=== PATIENT | male | born 1950 | race Caucasian/White ===

== ENCOUNTER 2018-03-29 07:46 | Day surgery (SDC) | payer MEDICARE ==
[~2018-03-29] VITALS: Ht 170.2 cm; Wt 77.5 kg
[~2018-03-29 07:46] MED LIST: BACITRACIN 50,000 UNIT ONE; BACITRACIN OINT 500U/GM, 15 GM ONE; EPINEPHRINE TOPICAL SOLN 1 MG/ML, 30ML ONE; FLUORESCEIN SODIUM 500 MG/5 ML ONE; LIDOCAINE 1%-EPI 1:100K, 30ML ONE; OXYMETAZOLINE NASAL SPRAY 0.05%, 15ML ONE
[2018-03-29] MEDS ORDERED: LACTATED RINGERS 1,000 ML IV SCH (08:31)
[2018-03-29] MEDS ORDERED: METFORMIN PO (08:42)
[2018-03-29] MEDS ORDERED: LISINOPRIL PO (08:42)
[2018-03-29] MEDS ORDERED: MELOXICAM PO (08:42)
[2018-03-29] MEDS ORDERED: HYDROCHLOROTHIAZIDE PO (08:42)
[2018-03-29] MEDS ORDERED: STATIN PO (08:42)
[2018-03-29] MEDS ORDERED: ALLOPURINOL PO (08:42)
[2018-03-29] MEDS ORDERED: LEXAPRO PO (08:42)
[2018-03-29] MEDS ORDERED: PRILOSEC PO (08:42)
[2018-03-29 08:50] VITALS: BP 131/84
[2018-03-29] MEDS ORDERED: ACETAMINOPHEN 500 MG TABLET PO ONE (09:00)
[2018-03-29] MEDS ORDERED: GABAPENTIN 300 MG CAPSULE PO ONE (09:00)
[2018-03-29] MEDS ORDERED: SCOPOLAMINE PATCH, 1.5MG PATCH.TD72 TD ONE (09:00)
[2018-03-29] MEDS ORDERED: LIDOCAINE-MPF 1%, 2ML INFIL ONE (09:00)
[2018-03-29] MEDS ORDERED: FENTANYL PF 250 MCG/5ML ONE (09:02)
[2018-03-29] MEDS ORDERED: MIDAZOLAM 1 MG/ML, 2ML ONE (09:02)
[2018-03-29 09:28] LABS: ALBUMIN 3.6 g/dL (3.4-5.0); ANION GAP 6 mmol/L (5-15); CALCIUM 8.3 mg/dL (8.5-10.1); CHLORIDE 110 mmol/L (98-107)
[2018-03-29 09:31] LABS: ALANINE AMINOTRANSFERASE 61 U/L (12-78); ALKALINE PHOSPHATASE 114 U/L (45-117); BILIRUBIN,TOTAL 0.5 mg/dL (0.2-1.0); CREATININE 1.02 mg/dL (0.7-1.3); TOTAL PROTEIN 6.3 g/dL (6.4-8.2)
[2018-03-29] MEDS ORDERED: ROCURONIUM 10 MG/ML,10ML ONE (09:42)
[2018-03-29] MEDS ORDERED: SUCCINYLCHOLINE 20 MG/ML, 10ML ONE (09:42)
[2018-03-29] MEDS ORDERED: PROPOFOL 10 MG/ML, 20ML ONE (09:42)
[2018-03-29] MEDS ORDERED: ONDANSETRON 2MG/ML, 2ML ONE (09:42)
[2018-03-29] MEDS ORDERED: CEFAZOLIN 1,000 MG ONE (09:42)
[2018-03-29] MEDS ORDERED: METOCLOPRAMIDE 5 MG/ML, 2ML IV PRN (10:30)
[2018-03-29] MEDS ORDERED: HYDROmorphone 1 MG/ML, 1ML IV PRN (10:30)
[2018-03-29] MEDS ORDERED: ONDANSETRON 2MG/ML, 2ML IVPush PRN (10:30)
[2018-03-29] MEDS ORDERED: FENTANYL PF 100 MCG/2ML IV PRN (10:30)
[2018-03-29] MEDS ORDERED: hydrALAzine 20 MG/ML, 1ML IV PRN (10:30)
[2018-03-29] MEDS ORDERED: ALBUTEROL SULFATE 2.5 MG/3 ML NPPB PRN (10:30)
[2018-03-29] MEDS ORDERED: OXYcodone 5 MG/5 ML ORAL.SOL UDC PO PRN (10:30)
[2018-03-29] MEDS ORDERED: MEPERIDINE/PF 25MG/0.5ML IVPush PRN (10:30)
[2018-03-29] MEDS ORDERED: LABETALOL 5MG/ML, 20ML IV PRN (10:30)
[2018-03-29] MEDS ORDERED: PROMETHAZINE 25 MG/ML, 1ML IV PRN (10:30)
[2018-03-29] MEDS ORDERED: KETOROLAC 30 MG/1 ML IV PRN (10:30)
== END 2018-03-29 14:40 | disposition home or self-care (01) ==
LOC: OUT 07:46
PROVIDERS: ATTEND Otolaryngology
DX: J32.0 Chronic maxillary sinusitis (principal); J01.81 Other acute recurrent sinusitis; I10 Essential (primary) hypertension; E11.9 Type 2 diabetes mellitus without complications; Z79.899 Other long term (current) drug therapy
CPT/HCPCS: 31255; 31267; 36415; 61782; 80053; 82962; 88304; 93005; J0330; J0690; J2250; J2405; J2704; J3010; J3490; J7120